=== PATIENT | male | born 1945 | race Caucasian/White ===

== ENCOUNTER 2024-08-23 10:35 | Day surgery (SDC) | payer MEDICARE, MEDICAID ==
[~2024-08-23] VITALS: Ht 172.7 cm; Wt 93.2 kg
[~2024-08-23 10:35] MED LIST: CLON2TAB11 PO; CLOP75TA34 PO; FLUT16SP26; OMEP40CA21 PO; ROSU40TA89
[2024-08-23 11:27] VITALS: BP 126/75; PULSE 19; RESP 69; TEMP 98.6
[2024-08-23] MEDS ORDERED: propofol inj 20 ML IV ONE (12:26)
[2024-08-23 13:05] VITALS: BP 95/55; PULSE 54; RESP 16; O2SAT 95
[2024-08-23 13:15] VITALS: BP 116/63; PULSE 70; RESP 14; O2SAT 93
[2024-08-23 13:25] VITALS: BP 116/77; PULSE 68; RESP 12; O2SAT 96
[2024-08-23 13:35] VITALS: BP 126/70; PULSE 63; RESP 14; O2SAT 95
[2024-08-23 13:40] VITALS: BP 115/68; PULSE 62; RESP 14; O2SAT 95
== END 2024-08-23 13:40 | disposition home or self-care (01) ==
LOC: GI LAB 10:35
PROVIDERS: ATTEND Internal Medicine Gastroenterology
DX: R13.10 Dysphagia, unspecified (principal); K22.2 Esophageal obstruction; K21.9 Gastro-esophageal reflux disease without esophagitis; Z87.891 Personal history of nicotine dependence; Z90.49 Acquired absence of other specified parts of digestive tract; Z98.890 Other specified postprocedural states; Z79.899 Other long term (current) drug therapy
CPT/HCPCS: 43450; J2704; J7030; Z7512

== ENCOUNTER 2024-08-31 10:18 | Day surgery (SDC) | payer MEDICARE, MEDICAID ==
[2024-08-31] VITALS (9 sets, daily range): BP systolic 88–131; BP diastolic 44–109; PULSE 59–72; RESP 14–18; TEMP 97.4; O2SAT 95–100
[2024-08-31] MEDS ORDERED: fentaNYL/PF 50MCG/1 ML 2ML syringe ONE (13:41)
[2024-08-31] MEDS ORDERED: LIDOcaine 2% Viscous 15ml cup ONE (13:41)
[2024-08-31] MEDS ORDERED: diphenhydrAMINE 50 mg/ml inj ONE (13:41)
[2024-08-31] MEDS ORDERED: MIDAZolam 1 MG/ML 5ML VIAL ONE (13:41)
[2024-08-31] MEDS ORDERED: propofol 10mg/ml 20ml vial IV ONE (14:04)
== END 2024-08-31 16:30 | disposition home or self-care (01) ==
LOC: GI LAB 10:18
PROVIDERS: ATTEND Internal Medicine Gastroenterology
DX: R13.10 Dysphagia, unspecified (principal); K21.9 Gastro-esophageal reflux disease without esophagitis; K29.50 Unspecified chronic gastritis without bleeding; K22.2 Esophageal obstruction; F41.0 Panic disorder [episodic paroxysmal anxiety]; Z98.890 Other specified postprocedural states; Z87.891 Personal history of nicotine dependence; Z79.01 Long term (current) use of anticoagulants
CPT/HCPCS: 43239; 43249; A4620; C1726; J2704; J7030; Z7512; 88305; J1200; J2250; J3010

== ENCOUNTER 2024-09-05 10:32 | Day surgery (SDC) | payer MEDICARE, MEDICAID ==
[~2024-09-05] VITALS: Ht 175.3 cm; Wt 92.0 kg
[2024-09-05] VITALS (7 sets, daily range): BP systolic 103–121; BP diastolic 57–76; PULSE 52–64; RESP 14–21; TEMP 98.2; O2SAT 94–96
[2024-09-05] MEDS ORDERED: propofol inj 40 ML IV ONE (11:41)
== END 2024-09-05 13:00 | disposition home or self-care (01) ==
LOC: GI LAB 10:32
PROVIDERS: ATTEND Internal Medicine Gastroenterology
DX: K22.2 Esophageal obstruction (principal); R13.10 Dysphagia, unspecified; Z87.891 Personal history of nicotine dependence; Z98.890 Other specified postprocedural states; Z79.899 Other long term (current) drug therapy
CPT/HCPCS: 43249; A4620; C1726; J2704; J7030; Z7512

== ENCOUNTER 2024-09-19 11:25 | Day surgery (SDC) | payer MEDICARE, MEDICAID ==
[~2024-09-19] VITALS: Ht 175.3 cm; Wt 93.2 kg
[2024-09-19] VITALS (8 sets, daily range): BP systolic 98–114; BP diastolic 45–81; PULSE 54–64; RESP 11–16; TEMP 98.1; O2SAT 93–96
[2024-09-19] MEDS ORDERED: epiNEPHrine 0.1mg/ml 10ml syringe ONE (12:59)
[2024-09-19] MEDS ORDERED: glucagon, human recombinant 1mg kit ONE (12:59)
[2024-09-19] MEDS ORDERED: fentaNYL/PF 50MCG/1 ML 2ML syringe ONE ×2 (13:11→13:46)
[2024-09-19] MEDS ORDERED: midazolam 1 mg/ML 2ml injection ONE ×2 (13:11→13:45)
[2024-09-19] MEDS ORDERED: simethicone 40mg/0.6ml oral drops 30ml ONE (13:38)
[2024-09-19] MEDS ORDERED: propofol inj 20 ML IV ONE (14:03)
[2024-09-19] MEDS ORDERED: LIDOcaine 1%/PF 5ML 10 MG/ML VIAL ONE (14:03)
== END 2024-09-19 15:17 | disposition home or self-care (01) ==
LOC: OR 11:25
PROVIDERS: ATTEND Internal Medicine Gastroenterology
DX: K22.2 Esophageal obstruction (principal); R13.10 Dysphagia, unspecified; K29.70 Gastritis, unspecified, without bleeding; I73.9 Peripheral vascular disease, unspecified; K31.89 Other diseases of stomach and duodenum; Z87.891 Personal history of nicotine dependence
CPT/HCPCS: 43239; 88305; A4618; J1610; J2250; J2704; J3010; J3490; Z7506; Z7512; J0171; J7120